=== PATIENT | female | born 1950 | race Caucasian/White ===

== ENCOUNTER → 2019-06-04 | Outpatient (CLI) | payer MEDICARE, BC ==
--- NOTE | 2019-06-05 14:25 | MM ---
Reason for exam: screening (asymptomatic). Last mammogram was performed 2 years and 7 months ago. History: Patient is postmenopausal. Took hormonal contraceptives for 5 years beginning at age 20. MG 3D Screening Mammo W/Cad Bilateral CC and MLO view(s) were taken. Prior study comparison: November 04, 2016, bilateral MG 3d screening mammo w/cad. April 13, 2015, bilateral MG screening mammo w CAD. The breast tissue is heterogeneously dense. This may lower the sensitivity of mammography. No suspicious left breast abnormality. There is a developing right medial middle depth 3 mm asymmetry and a superior middle depth right breast asymmetry these are both new. ASSESSMENT: Incomplete: need additional imaging evaluation, BI-RAD 0 RECOMMENDATION: Special view mammogram of the right breast. [facility] will attempt to contact patient to return for supplemental views.
== END | disposition home or self-care (01) ==
LOC: RADMAMWWP 13:14
PROVIDERS: ATTEND Family Medicine
DX: Z12.31 Encounter for screening mammogram for malignant neoplasm of breast (principal)
CPT/HCPCS: 77063; 77067

== ENCOUNTER → 2019-06-17 | Outpatient (CLI) | payer BC, MEDICARE ==
--- NOTE | 2019-06-17 14:17 | MM ---
Reason for exam: additional evaluation requested from abnormal screening. Last mammogram was performed less than 1 month ago. History: Patient is postmenopausal and history of other cancer. Took hormonal contraceptives for 5 years beginning at age 20. Physical Findings: Nurse did not find any significant physical abnormalities on exam. MG 3D Work Up W/Cad RT Spot compression CC, spot compression MLO, and ML view(s) were taken of the right breast. Prior study comparison: June 04, 2019, bilateral MG 3d screening mammo w/cad. November 04, 2016, bilateral MG 3d screening mammo w/cad. Nodular densities have improved. 6 month follow up recommended. These results were verbally communicated with the patient and result sheet given to the patient on 06/17/19. ASSESSMENT: Probably benign, BI-RAD 3 RECOMMENDATION: Follow-up diagnostic mammogram of the right breast in 6 months.
== END | disposition home or self-care (01) ==
LOC: RADMAMWWP 13:36
PROVIDERS: ATTEND Family Medicine
DX: R92.8 Other abnormal and inconclusive findings on diagnostic imaging of breast (principal)
CPT/HCPCS: 77061; 77065

== ENCOUNTER → 2020-04-30 | Outpatient (CLI) | payer MEDICARE ==
--- NOTE | 2020-05-04 11:13 | MM ---
Reason for exam: follow-up at short interval from prior study. Last mammogram was performed 10 months ago. History: Patient is postmenopausal and history of other cancer. Took hormonal contraceptives for 5 years beginning at age 20. Physical Findings: Nurse did not find any significant physical abnormalities on exam. MG 3D Diag Mammo W/Cad RT CC and MLO view(s) were taken of the right breast. Prior study comparison: June 17, 2019, right breast MG 3d work up w/cad RT. June 04, 2019, bilateral MG 3d screening mammo w/cad. Focal asymmetry is stable. No significant new findings when compared with previous films. These results were verbally communicated with the patient and result sheet given to the patient on 04/30/20. ASSESSMENT: Benign, BI-RAD 2 RECOMMENDATION: Return to routine screening mammogram schedule for both breasts. Back on schedule for June 2020.
== END | disposition home or self-care (01) ==
LOC: RADMAMWWP 13:46
PROVIDERS: ATTEND Family Medicine
DX: R92.8 Other abnormal and inconclusive findings on diagnostic imaging of breast (principal)
CPT/HCPCS: 77065; G0279; 77061